=== PATIENT | female | born 1990 | race Caucasian/White ===

== ENCOUNTER 2016-11-19 15:53 | Outpatient (CLI) | payer OTHER ==
[~2016-11-19] VITALS: Ht 162.6 cm; Wt 65.0 kg
[2016-11-19 15:58] VITALS: BP 130/78; PULSE 80; TEMP 98.8
[2016-11-19 16:00] VITALS: BP 121/73; PULSE 81; TEMP 98.8
[2016-11-19] MEDS ORDERED: PRENATAL (16:04)
[2016-11-19 16:46] VITALS: BP 119/77; PULSE 96
== END 2016-11-19 16:40 | disposition home or self-care (01) ==
LOC: LDRO 15:53
DX: O62.9 Abnormality of forces of labor, unspecified (principal); Z3A.39 39 weeks gestation of pregnancy